=== PATIENT | male | born 1990 | race Caucasian/White ===

== ENCOUNTER 2016-05-06 10:12 | Emergency (ER) | payer BC, MEDICAID ==
[2016-05-06] MEDS ORDERED: ONDANSETRON HCL IV 4 MG/2 ML VIAL IV ONE (10:23)
[2016-05-06] MEDS ORDERED: 0.9 % SODIUM CHLORIDE 1,000 ML BAG IV ONE (10:23)
--- NOTE | 2016-05-06 10:30 | Emergency Department Record ---
History of Present Illness - General Chief complaint: Vomiting Stated complaint: VOMITING Time Seen by Provider: 05/06/16 10:23 Source: Patient, Family Mode of Arrival: Ambulatory Limitations: No limitations - History of Present Illness Initial comments: 25 yo male presents with nausea, vomiting and diarrhea since 1am. No blood in either. No definite exposures. No recent antibiotics. No history of abdominal surgeries. No cough or sore throat. MD complaint: Diarrhea, Nausea, Vomiting Onset/Timin -: Hour(s) Associated Abdominal Pain: Yes Location: LUQ, RUQ, LLQ, RLQ Quality: Cramping Consistency: Intermittent Improves with: None Worsens with: None Associated Symptoms: Nausea/vomiting - Related Data Previous Rx's Medication Instructions Recorded Ondansetron [Zofran Odt] 4 mg PO Q8H #10 tab.rapdis 05/06/16 Allergies Allergy/AdvReac Type Severity Reaction Status Date / Time No Known Drug Allergies Allergy Verified 05/06/16 10:28 Travel Screening - Travel/Exposure Within Last 30 Days Have you traveled within the last 30 days?: No Review of Systems Constitutional: Denies: Chills, Fever, Weakness Eyes: Denies: Eye discharge, Eye pain, Photophobia ENT: Denies: Congestion, Throat pain Respiratory: Denies: Cough, Dyspnea, Hemoptysis, Stridor, Wheezes Cardiovascular: Denies: Chest pain, Palpitations, Syncope Endocrine: Denies: Fatigue Gastrointestinal: Reports: Diarrhea, Nausea, Vomiting. Denies: Constipation, Hematemesis, Hematochezia, Melena Genitourinary: Denies: Dysuria, Frequency, Hematuria Musculoskeletal: Denies: Arthralgia, Back pain, Myalgia, Neck pain Skin: Denies: Bruising, Change in color, Rash Neurological: Denies: Confusion, Headache Psychiatric: Denies: Anxiety Hematological/Lymphatic: Denies: Blood Clots, Easy bleeding, Easy bruising, Swollen glands Physical Exam - General General Appearance: Alert, Oriented x3, Cooperative, No acute distress Limitations: No limitations - Head Head exam: Normal inspection - Eye Eye exam: Normal appearance, PERRL. negative: Conjunctival injection, Periorbital swelling - ENT ENT exam: Normal exam Ear exam: Normal external inspection Nasal Exam: Normal inspection Mouth exam: Normal external inspection Teeth exam: Normal inspection Throat exam: Normal inspection - Neck Neck exam: Normal inspection, Full ROM. negative: Tenderness - Respiratory Respiratory exam: Normal lung sounds bilaterally. negative: Respiratory distress - Cardiovascular Cardiovascular Exam: Regular rate, Normal rhythm, Normal heart sounds - GI/Abdominal GI/Abdominal exam: Soft. negative: Distended, Guarding, Rebound, Rigid, Tenderness - exam: Deferred - Extremities Extremities exam: Normal inspection, Full ROM, Normal capillary refill. negative: Tenderness - Back Back exam: Reports: Normal inspection, Full ROM. Denies: Muscle spasm, Rash noted, Tenderness - Neurological Neurological exam: Alert, Normal gait, Oriented X3 - Psychiatric Psychiatric exam: Normal affect, Normal mood. negative: Agitated, Anxious - Skin Skin exam: Dry, Intact, Normal color, Warm Course Vital Signs 05/06/16 10:17 Temperature 97.6 F Pulse Rate 81 Respiratory 16 Rate Blood Pressure 133/90 Pulse Ox 99 - Reevaluation(s) Reevaluation #1: Vitals reviewed No acute changes IVF, Labs and Zofran ordered. 05/06/16 10:26 Reevaluation #2: The patient is feeling much better. No nausea, vomiting or pain Labs reviewed. CMP with some signs of dehydration. Will provide second liter 05/06/16 11:05 Reevaluation #3: The patient continues to do well Will DC after the second liter with Zofran for home 05/06/16 12:11 Reevaluation #4: Tolerated PO well DC home with instructions for home care and reasons to return to the ER 05/06/16 12:36 Medical Decision Making - Lab Data Result diagrams: 05/06/16 10:30 05/06/16 10:30 Disposition Disposition: Discharge Clinical Impression: Vomiting and diarrhea Disposition: Home, Self-Care Condition: (1) Good Instructions: Acute Nausea and Vomiting (ED), Acute Diarrhea (ED) Additional Instructions: Rest and stay hydrated with frequent small amount Return if you have fever, pain, or any new concerns. Prescriptions: Ondansetron [Zofran Odt] 4 mg PO Q8H #10 tab.rapdis Forms: Patient Portal Access Time of Disposition: 12:12
[2016-05-06 10:40] LABS: HEMOGLOBIN 17.6 gm/dl (14.0-18.0); MEAN CELL VOLUME 82.9 fl (81-97); MEAN CORPUSCULAR HGB CONC 35.9 g/dl (32-36); MEAN PLATELET VOLUME 10.7 fl (7.4-10.4); PLATELET COUNT 237 K/uL (130-400); RED BLOOD COUNT 5.91 M/uL (4.40-5.70); RED CELL DISTRIBUTION WIDTH 13.5 % (11.5-14.5); WHITE BLOOD COUNT W/O DIFF 9.6 K/uL (4.2-12.2)
[2016-05-06 10:41] LABS: MEAN CORPUSCULAR HEMOGLOBIN 29.7 pg (27-33)
[2016-05-06 10:49] LABS: PLATELET ESTIMATE NORMAL (NORMAL)
[2016-05-06 10:52] LABS: ALBUMIN 5.5 gm/dL (3.5-5.0); ALKALINE PHOSPHATASE 103 U/L (38-126); ALT/SGPT 23 U/L (21-72); AST/SGOT 21 U/L (17-59); BILIRUBIN,TOTAL 1.52 mg/dL (0.2-1.3); BLOOD UREA NITROGEN 21 mg/dL (9-20); EST GLOMERULAR FILTRATION RATE > 60 ml/min; GLUCOSE,RANDOM 160 mg/dL (70-110); LIPASE 21 U/L (23-300); TOTAL PROTEIN 8.8 gm/dL (6.3-8.2)
[2016-05-06] MEDS ORDERED: 0.9 % SODIUM CHLORIDE 1000ML 1,000 ML IV ONE (11:05)
== END 2016-05-06 12:44 | disposition home or self-care (01) ==
LOC: ER 10:12
DX: R11.2 Nausea with vomiting, unspecified (principal); R19.7 Diarrhea, unspecified
CPT/HCPCS: 80048; 80076; 83690; 85027; 96361; 96374; 99284; J2405; J7030